=== PATIENT | female | born 1985 | race Caucasian/White ===

== ENCOUNTER 2021-12-07 13:14 | Emergency (ER) | payer OTHER ==
[2021-12-07 13:28] VITALS: BP 121/74; PULSE 75; TEMP 97; BMI 30.1
[2021-12-07] MEDS ORDERED: SODIUM CHLORIDE 1,000 ML IV STA (14:24)
== END 2021-12-07 17:00 | disposition left against medical advice (07) ==
LOC: JER 13:14
DX: R10.31 Right lower quadrant pain (principal)
CPT/HCPCS: 99283-25